=== PATIENT | female | born 1970 ===

== ENCOUNTER 2024-12-27 01:16 | Outpatient (CLI) | payer BC, SELFPAY ==
--- NOTE | 2024-12-27 | DI.MAMMO_ITS ---
Exam(s) MAMMO SCREENING EXAM: MAMMO SCREENING CLINICAL HISTORY: Screening, Z12.31 TECHNIQUE: Bilateral full field digital CC and MLO mammographic images were obtained with 3D tomosyn thesis and utilizing computer aided detection (CAD). COMPARISON: This is a baseline examination. There are no priors for comparison. FINDINGS: Masses/Architectural Distortion: There is a question of a 6 mm ovoid nodule in the outer left breast on the craniocaudad view 7.4 cm from the nipple. On the MLO views, there areas of breast asymmetry i n the upper portions of each breast. Microcalcifications: No suspicious pleomorphic-type are seen. Skin Thickening/Nipple Retraction: None. IMPRESSION: 1. Asymmetric areas seen in both breasts. These areas should be further evaluated with spot compress ion views. 2. Bilateral breast ultrasound may be indicated at that time. BI-RADS Category 0 - Incomplete: Need additional imaging evaluation Breast Density - Category B - Scattered areas of fibroglandular density Breast density category C or D implies that the patient has dense breast tissue. Dense breast tissue is very common and is not abnormal but dense breast tissue can make it harder to find cancer on a ma mmogram. Also, dense breast tissue may increase their breast cancer risk. This information about the result of the mammogram report was provided to the patient to raise their awareness. Use this report when you speak with the patient about their risks for breast cancer, which includes their family hist ory. At that time, you may recommend for more screening tests (Ultrasound or MRI) as they might be us eful based on their risk. A negative radiographic report should not delay biopsy if a dominant or clinically suspicious mass is present. Up to ten percent of cancers are not identified on mammography. A negative report may reinforce clinical impression. Adenosis and dense breasts may obscure an underlying neoplasm. False positive reports average 6 to 10%. Patient will receive a letter notifying them of these results.
== END 2024-12-27 01:36 ==
PROVIDERS: PCP Nurse Practitioner Adult Health; Visit Provider Nurse Practitioner Adult Health
DX: Z12.31 Encounter for screening mammogram for malignant neoplasm of breast (principal); R92.323 Mammographic fibroglandular density, bilateral breasts
CPT/HCPCS: 77063; 77067

== ENCOUNTER 2025-01-05 00:18 | Outpatient (CLI) | payer BC, SELFPAY ==
--- NOTE | 2025-01-05 | DI.US_ITS ---
Exam(s) US BREAST LT COMPLETE US BREAST RT COMPLETE MG MAMMO SCREEN CALL BACK BI EXAM: MG MAMMO SCREEN CALL BACK BI AND BILATERAL COMPLETE BREAST ULTRASOUND CLINICAL HISTORY: R92.8 ABN mammo, Asymmetric areas seen in both breast,? 6mm ovoid nodule. TECHNIQUE: Bilateral l spot mammographic images obtained with 3D tomosynthesisand utilizing computer aided detection (CAD). . Complete bilateral breast Ultrasound was also performed, including all 4 quadrants, the retroareolar region, and the ipsilateral axilla. COMPARISON: Prior mammograms were reviewed. This additional imaging was performed due to findings described on the recent baseline screening mammogram of 12/27/2024. FINDINGS: DIAGNOSTIC BILATERAL MAMMOGRAM: Additional mammographic views performed todayrender the bilateral areas less concerning. We proceeded with ultrasound COMPLETE BILATERAL BREAST ULTRASOUND: Ultrasound performed today reveals no significant findings in the right breast.. There is a solitary finding in the left breast at the peripheral 2 o'clock position which has appearance a 5 millimeter probable hemorrhagic microcysts. This probably corresponds to the finding described on the screening mammogram. Scanning of the ipsilateral axilla reveals no significant adenopathy. IMPRESSION: 1. No radiographic evidence of malignancy. 2. Solitary 5 millimeter hemorrhagic microcyst at the peripheral 2 o'clock position of the left kathe st seen on ultrasound Appropriate follow-up is to keep this patient on a yearly mammogram schedule, with earlier imaging i f a self detected breast change is noted. The patient was informed of these findings and recommendations by myself prior to leaving the [facility] ent today. BI-RADS Category 2 - Benign Findings Breast Density - Category B - Scattered areas of fibroglandular density Breast density Category C or D implies that the patient has dense breast tissue. Dense breast tissue can make it harder to find cancer on a mammogram. Dense breast tissue is also associated with an incr eased risk of breast cancer. This information about the result of the mammogram report was provided to the patient to raise their awareness. Use this report when you speak with the patient about their risks for breast cancer, which includes their family history. At that time, you may recommend additional screening tests (Ultrasoun d or MRI) as these tests may add significant information. A negative radiographic report should not delay biopsy if a dominant or clinically suspicious mass is present. Up to ten percent of cancers are not identified on mammography. A negative report may reinforce clinical impression. Adenosis and dense breasts may obscure an underlying neoplasm. False positive reports average 6 to 10%. Patient will receive a letter notifying them of these results.
== END 2025-01-05 00:38 ==
LOC: DI 00:18
PROVIDERS: PCP Nurse Practitioner Adult Health; Visit Provider Nurse Practitioner Adult Health
DX: Z12.31 Encounter for screening mammogram for malignant neoplasm of breast (principal); R92.8 Other abnormal and inconclusive findings on diagnostic imaging of breast; R92.323 Mammographic fibroglandular density, bilateral breasts; D24.2 Benign neoplasm of left breast
CPT/HCPCS: 76642; 77063; 77067